=== PATIENT | male | born 1960 | race Caucasian/White ===

== ENCOUNTER 2021-01-25 19:34 | Emergency (ER) | payer BC ==
[~2021-01-25] VITALS: Ht 185.4 cm; Wt 133.4 kg
[2021-01-25] MEDS ORDERED: CHOLESTEROL MED PO (19:45)
[2021-01-25] MEDS ORDERED: SILD25TA PO (19:45)
[2021-01-25] MEDS ORDERED: FLON1SPR NARES (19:45)
[2021-01-25 22:47] LABS: BASO # 0.1 10^3/uL (0.0-0.2); BASO % 0.6 % (0.0-1.0); EOS # 0.1 10^3/uL (0.0-0.5); EOS % 1.6 % (0.0-3.0); HEMOGLOBIN 14.6 g/dl (13.5-17.5); LYMPH % 22.9 % (24.0-44.0); MEAN CORPUSCULAR HEMOGLOBIN 30.8 pg (27.0-33.0); MEAN CORPUSCULAR VOLUME 90.7 fl (80.0-96.0); MONO # 0.8 10^3/uL (0.0-0.8); MONO % 9.5 % (2.0-8.0); NEUTROPHILS # 5.8 10^3/uL (1.5-8.5); NEUTROPHILS % 65.1 % (36.0-66.0); PLATELET COUNT, AUTOMATED 240 10^3/uL (150-450); RED BLOOD COUNT 4.74 10^6/uL (4.30-6.10); WHITE BLOOD COUNT 8.9 10^3/uL (4.0-10.0)
--- NOTE | 2021-01-26 00:23 | REPVR ---
PROCEDURE INFORMATION: Exam: CT Abdomen And Pelvis Without Contrast Exam date and time: 01/25/2021 10:55 PM Age: 60 years old Clinical indication: Abdominal pain; Flank; Left; Additional info: Left flank pain, renal colic TECHNIQUE: Imaging protocol: Computed tomography of the abdomen and pelvis without contrast. Radiation optimization: All CT scans at this facility use at least one of these dose optimization techniques: automated exposure control; mA and/or kV adjustment per patient size (includes targeted exams where dose is matched to clinical indication); or iterative reconstruction. COMPARISON: No relevant prior studies available. FINDINGS: Liver: Normal. No mass. Gallbladder and bile ducts: Normal. No calcified stones. No ductal dilation. Pancreas: Normal. No ductal dilation. Spleen: Normal. No splenomegaly. Adrenal glands: Normal. No mass. Kidneys and ureters: Normal. No hydronephrosis. Stomach and bowel: Diverticulosis of the sigmoid colon. Appendix: No evidence of appendicitis. Intraperitoneal space: Unremarkable. No free air. No significant fluid collection. Vasculature: Unremarkable. No abdominal aortic aneurysm. Lymph nodes: Unremarkable. No enlarged lymph nodes. Urinary bladder: Unremarkable as visualized. Reproductive: Unremarkable as visualized. Bones/joints: Unremarkable. No acute fracture. Soft tissues: Unremarkable. IMPRESSION: No acute abdominal or pelvic abnormality. Electronically signed by: Charlie Cutler On 01/26/2021 00:22:18 AM
[2021-01-26 00:58] VITALS: BP 146/78
== END 2021-01-26 00:59 | disposition home or self-care (01) ==
LOC: M ED 19:34
DX: R35.8 Other polyuria (principal); E78.5 Hyperlipidemia, unspecified